=== PATIENT | male | born 1945 | race Caucasian/White ===

== ENCOUNTER → 2016-07-18 | Outpatient (CLI) | payer OTHER | LOC: CIMAGING 14:29 | PROVIDERS: ATTEND Psychiatry & Neurology Neurology | DX: I63.9 Cerebral infarction, unspecified (principal) | CPT/HCPCS: 70450-PO ==

== ENCOUNTER 2016-08-01 15:25 | Emergency (ER) | payer OTHER ==
[2016-08-01 15:38] VITALS: BP 142/70; PULSE 57; RESP 20; TEMP 97.3; O2SAT 96
--- NOTE | 2016-08-01 16:25 | EDPHY ---
H & P Smoking Status: Never smoked Time Seen by Provider: 08/01/16 15:55 HPI/ROS: HPI: 71-year-old type 2 diabetic male with stable blood sugars presents to emergency department with chief concern left 1st great toe infection. Reports intermittent ingrown toenail with worsening erythema and swelling over the past several days. Denies fever, chills, myalgias, other redness or swelling, other joint pain. Aggravating factors weight-bearing. No alleviating factor. ROS:10 point review of systems is negative other than as stated in HPI (Julianne Schaffer) Past Medical/Surgical History: Diabetes/sepsis, endocarditis, post hip dislocation, hypertension, cellulitis, a KI, RUTHIE, obesity, AFib, hypothyroid (Julianne Schaffer) Social History: (Julianne Schaffer) Physical Exam: Vital signs stable, reviewed by me General: Awake, alert, calm, cooperative. No acute distress. Head: Normalocephalic. Atraumatic. EENT: PERRLA. EOMI. Neck: Supple, nontender. No midline tenderness, full ROM. Respiratory: Breathing unlabored. CV: Chest nontender, atraumatic. Distal pulses 2+. Brisk cap refill all extremities. GI: Deferred Neuro: Alert. Oriented x 3. Sensation intact all extremities. Skin: Skin warm, dry, intact. No ecchymosis, abrasions, or lacerations. Extremities: Erythema, warmth, swelling at the medial and inferomedial aspect of the left great toenail. No pain at the interphalangeal joint, or at the MTPJ of the left 1st toe. (Julianne Schaffer) Constitutional: Initial Vital Signs Temperature (C) 36.3 C 08/01/16 15:35 Heart Rate 57 L 08/01/16 15:35 Respiratory Rate 20 08/01/16 15:35 Blood Pressure 142/70 H 08/01/16 15:35 O2 Sat (%) 96 08/01/16 15:35 O2 Delivery Mode Room Air Allergies/Adverse Reactions: No Known Allergies Allergy (Verified 08/01/16 15:34) Home Medications: Medication Instructions Recorded Levothyroxine [Synthroid 50 mcg 50 mcg PO DAILY06 06/03/14 (*)] Aspirin [Aspirin 81mg (*)] 81 mg PO DAILY 09/12/14 Herbals/Supplements -Info Only 1 ea PO DAILY 09/12/14 Insulin Glargine [Lantus 100 12 units SC HS 09/12/14 UNITS/ML (*)] Pantoprazole Sodium [Protonix 40mg 40 mg PO DAILY06 09/12/14 (*)] Acetaminophen [Tylenol 325mg (*)] 325 - 650 mg PO DAILY PRN 10/05/14 Lisinopril [Zestril 20 mg (*)] 20 mg PO DAILY 10/05/14 Potassium Cl [Klor-Con 10 meq (RX)] 10 meq PO DAILY 10/05/14 Atorvastatin Calcium [Lipitor 20 20 mg PO DAILY 08/16/15 mg (*)] Carvedilol [Coreg] 12.5 mg PO BID 08/16/15 Cholecalciferol Vit D3 [Vitamin D3 1,000 units PO DAILY 08/16/15 (*)] Liraglutide [Victoza 3-Babak] 1.2 mg SQ DAILY 08/16/15 Multivitamins [Multivitamin (*)] 1 each PO DAILY 08/16/15 Sligo-3 Fatty Acids [Fish Oil 1000 1,000 mg PO DAILY 08/16/15 mg (*)] Amlodipine Besylate 08/01/16 Doxycycline Hyclate 100 mg PO BID #14 capsule 08/01/16 Hydrocodone/APAP 5/325 [Pineland 1 tab PO Q4 PRN #10 tab 08/01/16 5/325 (*)] Medical Decision Making Procedures: Procedure: Ingrown toenail removal Indication: Ingrown toenail, infection After verbal consent was obtained, and risks and benefits were explained, a digital block was performed on the left 1st toe using a total of 4 mL 0.5% Marcaine. Adequate anesthesia was achieved. Toe was scrubbed using Betadine. Under sterile procedure, the medial 1/5th of the toenail was successfully removed. Small amount of purulent drainage was expressed from the medial nail bed. Culture was obtained and sent to lab. Patient tolerated procedure. Afterward, area was irrigated by signal maintenance technician, bacitracin and sterile dressing applied. Return precautions given. (Julianne Schaffer) ED Course/Re-evaluation: 71-year-old male presents to ED with ingrown toenail that is infected. Medial 1 /5 of the toenail was excised. Ultimately, purulent drainage was expressed. Culture was obtained and sent to lab. Unable to prescribe Bactrim for this patient due to interaction with lisinopril thus doxy has been prescribed. Case discussed with my attending Dr. Ryan Trotter Patient and his counseled regarding infection, need for follow-up, and signs for which to return to emergency department. (Julianne Schaffer) Differential Diagnosis: Differential diagnosis includes but is not limited to paronychia, ingrown toenail, cellulitis, abscess (Julianne Schaffer) - Data Points Laboratory Results: 08/01/16 16:38 POC Hgb 13.9 gm/dL L gm/dL (14.5-17.3) POC Hct 41 % L % (42.8-50.6) POC Sodium 143 mEq/L mEq/L (134-144) POC Potassium 4.0 mEq/L mEq/L (3.3-5.0) POC Chloride 106 mEq/L mEq/L (96-108) POC BUN 15 mg/dL mg/dL (7-23) POC Creatinine 0.8 mg/dL mg/dL (0.8-1.5) POC Glucose 116 mg/dL H mg/dL (70-100) Point of Care Test Results: 08/01/16 16:38 POC Sodium 143 POC Potassium 4.0 POC Chloride 106 POC BUN 15 POC Creatinine 0.8 POC Glucose 116 H Departure - Departure Disposition: Home, Routine, Self-Care Clinical Impression: Ingrown toenail, Paronychia Condition: Good Instructions: Paronychia (ED), Ingrown Nail (ED) Additional Instructions: Plan: Doxycycline Antibiotic as prescribed for 1 week May use 1 Pineland every 4-6 hours as needed for severe pain Warm water soak with or without epsom salt 3 times daily for 20 minutes Follow up with Podiatry Dr. Machado early next wake Thursday or Thursday for recheck without fail--When you call to schedule appointment, please let the office know you are an "ER follow up" appointment" Daily, washed area with warm, soapy water change dressing. Apply copious amounts of antibiotic ointment. For increasing redness, swelling, fever, elevated blood sugars please return to emergency department promptly for recheck Referrals: Parul Mendoza MD [Primary Care Provider] - As per Instructions Genesis Machado [Doctor of Podiatric Medicine] - As per Instructions Prescriptions: Doxycycline Hyclate 100 mg PO BID #14 capsule Hydrocodone/APAP 5/325 [Pineland 5/325 (*)] 1 tab PO Q4 PRN #10 tab PRN Reason: severe pain
== END 2016-08-01 17:13 | disposition home or self-care (01) ==
PROC: 0HBRXZZ Excision of Toe Nail, External Approach (ICD-10-PCS; principal; 2016-08-01)
DX: L60.0 Ingrowing nail (principal); L03.032 Cellulitis of left toe; E11.9 Type 2 diabetes mellitus without complications; I10 Essential (primary) hypertension; Z79.4 Long term (current) use of insulin; Z79.82 Long term (current) use of aspirin
CPT/HCPCS: 82947-QW

== ENCOUNTER → 2016-08-07 | Day surgery (SDC) | payer OTHER ==
[~2016-08-07] MED LIST: BENZOCAINE UNIT DOSE SPRAY HURRICAINE MM ONE; MIDAZOLAM 2 MG/2 ML VIAL IVP ONE; MIDAZOLAM 2 MG/2 ML VIAL ONE; NS 1,000 ML IV ONE; fentaNYL 100 MCG/2 ML INJ IVP ONE; fentaNYL 100 MCG/2 ML INJ ONE
--- NOTE | 2016-08-08 08:45 | ECHO ---
[id number] + + [address] : : [place] [address] : : [phone] + + Transesophageal Echocardiographic Report + --------+ :Name: ADDIE HEATON DStudy Date: 08/07/2016 01:07 PM : : Hospital Admission Number: [id number] Locat ion: CVC: :: 1945 Gender: Male : :Age: 71 yrs Race: WH : :Reason For Study: Eval LV Fx : :History: Known Mitral Valve Mass : + --------+ Left Ventricle The left ventricular ejection fraction is normal. Atria Injection of contrast documented an interatrial shunt. Minimal right to left shunting. Mitral Valve There is mild to moderate mitral regurgitation. 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 Tricuspid Valve Normal tricuspid valve. There is trace to mild tricuspid regurgitation. Aortic Valve The aortic valve is normal in structure and function. The aortic valve is trileaflet. The aortic valve opens well. There is no aortic stenosis. Trace aortic regurgitation. Pulmonic Valve The pulmonic valve is normal in structure and function. There is no pulmonic valvular regurgitation. Vessels Minimal plaquing in the descending aorta. Procedure With heart rate, blood pressure and oximetry monitered the patient was administered IV Versed, fentanyl and the bite block in place, the throat was anesthetized with topical spray. The Omniplane transesophageal probe was passed without difficulty. Conclusion A 2D transesophageal echocardiogram with color flow Doppler was performed. The left ventricular ejection fraction is normal. The mitral valve has been repaired There is mild to moderate mitral regurgitation. 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 This may be old, healed vegetation vs. chordal structure. Normal tricuspid valve The aortic valve is normal in structure and function. Trace aortic regurgitation. Compared to the previous ADELSO exam the results appear the same. Final Reading Physician: Dr Julianne Clements electronically signed on 08/08/2016 08:44 AM Ordering Physician: Julianne Clements Performed By: Dr Julianne Clements
== END | disposition home or self-care (01) ==
LOC: FCATH 11:32
PROVIDERS: ATTEND Internal Medicine Cardiovascular Disease
PROC: B245ZZ4 Ultrasonography of Left Heart, Transesophageal (ICD-10-PCS; principal; 2016-08-07)
DX: I34.0 Nonrheumatic mitral (valve) insufficiency (principal); I25.10 Atherosclerotic heart disease of native coronary artery without angina pectoris; E78.5 Hyperlipidemia, unspecified; I10 Essential (primary) hypertension; E11.9 Type 2 diabetes mellitus without complications; G47.33 Obstructive sleep apnea (adult) (pediatric); E03.9 Hypothyroidism, unspecified; I77.1 Stricture of artery; R60.0 Localized edema; Z95.2 Presence of prosthetic heart valve; Z86.73 Personal history of transient ischemic attack (TIA), and cerebral infarction without residual deficits; Z95.1 Presence of aortocoronary bypass graft; N40.0 Benign prostatic hyperplasia without lower urinary tract symptoms
CPT/HCPCS: J2250; J3010

== ENCOUNTER → 2017-01-15 | Outpatient (CLI) | payer OTHER | LOC: CIMAGING 12:24 | PROVIDERS: ATTEND Physician Assistant Medical | DX: R60.0 Localized edema (principal); R22.43 Localized swelling, mass and lump, lower limb, bilateral; Z96.642 Presence of left artificial hip joint | CPT/HCPCS: 93970-PO ==

== ENCOUNTER → 2018-09-30 | Outpatient (CLI) | payer OTHER | LOC: CIMAGING 10:07 ==